=== PATIENT | female | born 1945 | race Caucasian/White ===

== ENCOUNTER 2017-05-07 11:38 | Inpatient (IN) | payer MEDICARE, OTHER ==
[~2017-05-07] VITALS: Ht 162.6 cm; Wt 83.2 kg
[~2017-05-07 11:38] MED LIST: CEFDINIR300 MG PO; CHILDRENS CHEWA81 MG PO; CRESTOR10 MG PO; FLAGYL500 MG PO; GABAPENTIN800 MG PO; HYDROCODON-ACE1 EAC2 PO; ISOSORBIDE MONO30 MG PO; K-TAB ER10 MEQ PO; LEXAPRO10 MG PO; MAVIK1 MG PO; NASONEX17 GM; NEXIUM40 MG PO; NITROQUICK0.4 MG SL; PATADAY2.5 ML OP; PLAVIX75 MG PO; RANEXA500 MG PO; REQUIP1 MG PO; SYNTHROID100 MCG PO; VITAMIN D250000 UNIT PO; XYZAL5 MG PO; ZANAFLEX4 M1 PO
[2017-05-07 12:03] LABS: BASO % 0.2 % (0.1-1.2); EOS # 0.7 10_X3_uL (0.0-0.4); GRAN # 6.7 10_X3_uL (1.6-6.1); GRAN % 69.1 % (34.0-71.1); HEMATOCRIT 36.2 % (34-45); HEMOGLOBIN 12.1 g/dL (11.2-15.7); LYMPH # 1.2 10_X3_uL (1.2-3.7); LYMPH % 11.9 % (19.3-51.7); MEAN CORPUSCULAR HEMOGLOBIN 29.9 pg (27.0-33.0); MEAN CORPUSCULAR HGB CONC 33.4 g/dL (32.0-36.0); MEAN CORPUSCULAR VOLUME 89.4 fL (79-95); MEAN PLATELET VOLUME 10.6 fl (7.5-11.5); MONO # 1.1 10_X3_uL (0.2-0.9); MONO % 11.8 % (4.7-12.5); PLATELET COUNT 228 x10_3/uL (182-369); RED BLOOD COUNT 4.05 x10_6/uL (3.9-5.2); RED CELL DISTRIBUTION WIDTH 13.2 % (11.7-14.4); WHITE BLOOD COUNT 9.7 x10_3/uL (4.0-10.0)
[2017-05-07 12:15] LABS: ALBUMIN 3.9 gm/dL (3.4-5.0); BILIRUBIN,TOTAL 0.56 mg/dL (0.0-1.0); CALCIUM 8.9 mg/dL (8.7-10.7); CREATININE 2.7 mg/dL (0.6-1.3); POTASSIUM 4.4 mmol/L (3.5-5.1); TOTAL PROTEIN 7.1 gm/dL (6.4-8.2)
[2017-05-07 16:47] LABS: CKMB 2.8 ng/ml (0.0-5.0)
[2017-05-07 16:48] LABS: TROP-I < 0.30 NG/ML (0.00-0.30)
[2017-05-07 18:01] LABS: URINE BILIRUBIN 1+ (NEGATIVE); URINE BLOOD TRACE (NEGATIVE); URINE GLUCOSE (UA) NORMAL (NORMAL); URINE KETONE TRACE (NEGATIVE); URINE LEUKOCYTE ESTERASE TRACE (NEGATIVE); URINE NITRATE NEGATIVE (NEGATIVE); URINE PROTEIN NEGATIVE (NEGATIVE); UROBILINOGEN NORMAL mg/dL (<1.0)
[2017-05-07 18:24] LABS: URINE BACTERIA TRACE (NONE SEEN); URINE MUCUS TRACE; URINE RBC 0-5 /[HPF] (0-2); URINE RENAL EPITHELIAL CELLS 0-10 /[HPF] (NONE SEEN); URINE SQUAMOUS EPITHELIAL CELL 0-10 /[HPF] (NONE SEEN); URINE WBC 0-5 /[HPF] (0-5)
[2017-05-08 06:56] LABS: ALBUMIN 3.2 gm/dL (3.4-5.0); BILIRUBIN,TOTAL 0.3 mg/dL (0.0-1.0); CALCIUM 8.2 mg/dL (8.7-10.7); CREATININE 1.7 mg/dL (0.6-1.3); HEMATOCRIT 32.9 % (34-45); HEMOGLOBIN 10.6 g/dL (11.2-15.7); MEAN CORPUSCULAR HEMOGLOBIN 29.1 pg (27.0-33.0); MEAN CORPUSCULAR HGB CONC 32.2 g/dL (32.0-36.0); MEAN CORPUSCULAR VOLUME 90.4 fL (79-95); MEAN PLATELET VOLUME 10.9 fl (7.5-11.5); POTASSIUM 4.1 mmol/L (3.5-5.1); RED BLOOD COUNT 3.64 x10_6/uL (3.9-5.2); RED CELL DISTRIBUTION WIDTH 13.3 % (11.7-14.4); TOTAL PROTEIN 5.9 gm/dL (6.4-8.2); WHITE BLOOD COUNT 6.7 x10_3/uL (4.0-10.0)
[2017-05-09 06:40] LABS: ALBUMIN 3.8 gm/dL (3.4-5.0); BILIRUBIN,TOTAL 0.29 mg/dL (0.0-1.0); CREATININE 1.3 mg/dL (0.6-1.3); MAGNESIUM 1.7 mg/dL (1.8-2.4); POTASSIUM 4.2 mmol/L (3.5-5.1)
[2017-05-09 06:43] LABS: HEMATOCRIT 37.4 % (34-45); HEMOGLOBIN 12.1 g/dL (11.2-15.7); MEAN CORPUSCULAR HEMOGLOBIN 28.8 pg (27.0-33.0); MEAN CORPUSCULAR HGB CONC 32.4 g/dL (32.0-36.0); MEAN PLATELET VOLUME 10.8 fl (7.5-11.5); RED BLOOD COUNT 4.2 x10_6/uL (3.9-5.2)
[2017-05-10 06:17] LABS: HEMATOCRIT 37.2 % (34-45); HEMOGLOBIN 12.1 g/dL (11.2-15.7); MEAN CORPUSCULAR HEMOGLOBIN 28.9 pg (27.0-33.0); MEAN CORPUSCULAR HGB CONC 32.5 g/dL (32.0-36.0); MEAN CORPUSCULAR VOLUME 88.8 fL (79-95); MEAN PLATELET VOLUME 10.2 fl (7.5-11.5); RED BLOOD COUNT 4.19 x10_6/uL (3.9-5.2); RED CELL DISTRIBUTION WIDTH 12.9 % (11.7-14.4); WHITE BLOOD COUNT 7.8 x10_3/uL (4.0-10.0)
[2017-05-10 06:30] LABS: ALBUMIN 3.5 gm/dL (3.4-5.0); BILIRUBIN,TOTAL 0.22 mg/dL (0.0-1.0); CALCIUM 8.6 mg/dL (8.7-10.7); CREATININE 1.1 mg/dL (0.6-1.3); POTASSIUM 3.8 mmol/L (3.5-5.1); TOTAL PROTEIN 6.5 gm/dL (6.4-8.2)
== END 2017-05-11 12:50 | disposition home or self-care (01) | DRG 386 ==
LOC: ER 11:38 → MS 14:43 → UNDODEPER 05-09 15:28 → MS 05-11 12:50
PROVIDERS: General Practice; ADMIT Family Medicine
PROC: 0DBN8ZX Excision of Sigmoid Colon, Via Natural or Artificial Opening Endoscopic, Diagnostic (ICD-10-PCS; principal; 2017-05-11)
DX: K51.00 Ulcerative (chronic) pancolitis without complications (principal); N17.9 Acute kidney failure, unspecified; K29.70 Gastritis, unspecified, without bleeding; B96.81 Helicobacter pylori [H. pylori] as the cause of diseases classified elsewhere; E86.0 Dehydration; R19.5 Other fecal abnormalities; E83.42 Hypomagnesemia; I11.0 Hypertensive heart disease with heart failure; I50.9 Heart failure, unspecified; I25.2 Old myocardial infarction; F32.9 Major depressive disorder, single episode, unspecified; E03.9 Hypothyroidism, unspecified; G25.81 Restless legs syndrome; G89.29 Other chronic pain; R11.0 Nausea; I25.10 Atherosclerotic heart disease of native coronary artery without angina pectoris; J44.9 Chronic obstructive pulmonary disease, unspecified; R53.1 Weakness; R10.816 Epigastric abdominal tenderness; Z88.0 Allergy status to penicillin; Z88.1 Allergy status to other antibiotic agents; Z79.82 Long term (current) use of aspirin; Z79.899 Other long term (current) drug therapy; Z90.710 Acquired absence of both cervix and uterus; Z95.5 Presence of coronary angioplasty implant and graft
CPT/HCPCS: 36415; 80053; 81001; 82150; 82550; 82553; 83690; 83735; 83880; 85025; 87045; 87086; 87177; 87324; 93005; 93041; 96374; 99070; 99284; 99284-25; G0328-QW; J2704; Q0169

== ENCOUNTER 2017-05-07 11:38 | Observation (INO) | payer MEDICARE, OTHER | END 2017-05-09 14:42 | disposition other institution (70) | LOC: ER 11:38 → MS 14:43 | PROVIDERS: ADMIT Family Medicine | DX: K51.00 Ulcerative (chronic) pancolitis without complications (principal); N17.9 Acute kidney failure, unspecified; K29.70 Gastritis, unspecified, without bleeding; B96.81 Helicobacter pylori [H. pylori] as the cause of diseases classified elsewhere; E86.0 Dehydration; R19.5 Other fecal abnormalities; E83.42 Hypomagnesemia; I11.0 Hypertensive heart disease with heart failure; I50.9 Heart failure, unspecified; I25.2 Old myocardial infarction; F32.9 Major depressive disorder, single episode, unspecified; E03.9 Hypothyroidism, unspecified; G25.81 Restless legs syndrome; G89.29 Other chronic pain; R11.0 Nausea; I25.10 Atherosclerotic heart disease of native coronary artery without angina pectoris; J44.9 Chronic obstructive pulmonary disease, unspecified; R53.1 Weakness; R10.816 Epigastric abdominal tenderness; Z88.0 Allergy status to penicillin; Z88.1 Allergy status to other antibiotic agents; Z79.82 Long term (current) use of aspirin; Z79.899 Other long term (current) drug therapy; Z90.710 Acquired absence of both cervix and uterus; Z95.5 Presence of coronary angioplasty implant and graft | CPT/HCPCS: 36415; 80053; 81001; 82150; 82550; 82553; 83690; 83735; 83880; 85025; 87045; 87086; 87177; 87324; 93005; 93041; 96361; 96366; 96367; 96372; 96374; 96375; 96376; 99070; 99284; 99284-25; G0328-QW; G0378; Q0169 ==